=== PATIENT | female | born 1990 | race Caucasian/White ===

== ENCOUNTER 2020-07-24 11:25 | Outpatient (REF) | payer MEDICAID, SELFPAY ==
[2020-07-24 21:12] LABS: Hemoglobin A1C 5.5 % (<5.7)
[2020-07-24 21:29] LABS: Calculated LDL 84 mg/dL (<100); Cholesterol 145 mg/dL (<200); HDL Cholesterol 52 mg/dL (40-60); TSH (W/Ref FT4) 1.33 uIU/mL (0.36-3.74); Triglyceride 49 mg/dL (<150)
== END 2020-07-24 11:45 ==
LOC: NCHCN 11:25
PROVIDERS: PCP Family Medicine; Visit Provider Registered Nurse
DX: E66.9 Obesity, unspecified (principal); Z83.3 Family history of diabetes mellitus; Z13.1 Encounter for screening for diabetes mellitus; Z13.220 Encounter for screening for lipoid disorders
CPT/HCPCS: 80061; 83036; 84443

== ENCOUNTER 2020-10-30 15:44 | Outpatient (REF) | payer MEDICAID, SELFPAY ==
[2020-11-02 14:46] LABS: COVID-19 RT-PCR Result NEGATIVE (Negative)
== END 2020-10-30 16:04 ==
LOC: NCHCN 15:44
PROVIDERS: PCP Family Medicine; Visit Provider Family Medicine
DX: Z11.59 Encounter for screening for other viral diseases (principal)
CPT/HCPCS: U0003

== ENCOUNTER 2021-07-23 15:34 | Outpatient (REF) | payer MEDICAID, SELFPAY ==
--- NOTE | 2021-07-23 13:55 | PAPFT_PTH ---
PATIENT: Liz Price LOC: [facility]#:[id number] AGE/SX: 30/F ROOM: RE07/23/[address]: Argelia Alvarado : 1990 BED: DIS: 07/23/2021 SPEC #: [id number] RECD: 07/26/21 12:48 STATUS: TARAN REQ #: [id number] JESSICA: 07/23/21 13:[address]: Argelia Alvarado DEPT: [facility] Cytology RECD BY: Gricel Wolff ENTERED: 07/26/21 12:48 SP TYPE: PAPFT OTHR DR: Evi Potts Tissues: 1 - CX/ENDOCX FOR PAP SMEARS Procedures: PAP THIN PREP/[facility] Screening HPV DNA PROBE Comments: [id number]
== END 2021-07-23 15:35 | disposition home or self-care (01) ==
LOC: NCHCN 15:34
PROVIDERS: PCP Family Medicine; Visit Provider Registered Nurse
DX: Z12.4 Encounter for screening for malignant neoplasm of cervix (principal); Z11.51 Encounter for screening for human papillomavirus (HPV)
CPT/HCPCS: 88142; 87624

== ENCOUNTER 2022-06-23 14:57 | Outpatient (REF) | payer MEDICAID, SELFPAY ==
[2022-06-23 20:38] LABS: ALT 21 U/L (14-59); AST 17 U/L (15-37); Albumin 3.9 g/dL (3.4-5.0); Alkaline Phosphatase 41 U/L (46-116); Anion Gap 5.8 mmol/L (3-11); BUN 10 mg/dL (7-18); Bilirubin, Total 0.2 mg/dL (0.2-1.0); CO2 28.2 mmol/L (21.0-32.0); CREATININE 0.8 mg/dL (0.55-1.02); Calcium 8.9 mg/dL (8.5-10.1); Chloride 105 mmol/L (98-107); Glucose 97 mg/dL (74-106); Magnesium 1.9 mg/dL (1.8-2.4); Potassium 4.6 mmol/L (3.5-5.1); Sodium 139 mmol/L (136-145); Total Protein 7.3 g/dL (6.4-8.2)
== END 2022-06-23 14:58 | disposition home or self-care (01) ==
LOC: NCHCN 14:57
PROVIDERS: PCP Family Medicine; Visit Provider Nurse Practitioner Family
DX: R25.2 Cramp and spasm (principal)
CPT/HCPCS: 80053; 83735

== ENCOUNTER 2023-03-21 13:37 | Outpatient (REF) | payer MEDICAID, SELFPAY ==
[2023-03-21 14:45] LABS: ESR 3 mm/hr (0-20)
[2023-03-21 15:07] LABS: Hemoglobin A1C 5.5 % (<5.7)
[2023-03-21 15:11] LABS: Anion Gap 7.7 mmol/L (3-11); BUN 13 mg/dL (7-18); C-Reactive Protein 0.07 mg/dL (0.0-0.3); CO2 25.3 mmol/L (21.0-32.0); CREATININE 0.9 mg/dL (0.55-1.02); Calcium 9.2 mg/dL (8.5-10.1); Chloride 105 mmol/L (98-107); Estimated GFR 86.03 (mL/min/1.73m2); Glucose 89 mg/dL (74-106); Potassium 4.4 mmol/L (3.5-5.1); Sodium 138 mmol/L (136-145)
== END 2023-03-21 13:38 | disposition home or self-care (01) ==
LOC: NCHCN 13:37
PROVIDERS: PCP Family Medicine; Visit Provider Family Medicine
DX: M25.561 Pain in right knee (principal); M25.562 Pain in left knee; R60.0 Localized edema; Z13.1 Encounter for screening for diabetes mellitus
CPT/HCPCS: 80048; 85652; 83036; 86140

== ENCOUNTER 2024-01-02 11:25 | Outpatient (REF) | payer BC, SELFPAY | END 2024-01-02 11:26 | disposition home or self-care (01) | LOC: NCHCN 11:25 | PROVIDERS: PCP Family Medicine; Visit Provider Physician Assistant | DX: R35.0 Frequency of micturition (principal) | CPT/HCPCS: 87086 ==

== ENCOUNTER 2024-03-25 05:54 | Outpatient (CLI) | payer BC, SELFPAY ==
--- NOTE | 2024-03-29 12:36 | TELEFU_ITS ---
Date of service: 03/25/24 Time of Service: 13:00 Nutrition Note NOTE: Liz referred for weight mgt appt. She admits to emotional eating often. She does eat 3 meals per day but can sometimes turn into grazing. She suffers from back pain and this contributes to her weight mgt struggles and her depression as her poor sleep she accounts in part to her back pain as well. She works 10pm-6am as nurse aid and sleeps after she gets home from about 9-2pm. Knee issue and back pain reported as barriers to activity. Reviewed recommendation for 1800kcals and 180g carbs/12 carb servings per day and reviewed choices that are better/higher in fiber/lower in glycemic value. Encouraged lots of water (2L per day) and working with a repeatable menu that she start off with and branch out with variety and we reviewed some set-ups for menus.. Tried to troubleshoot exercise and suggested PT bands for upper body stuff or isometric exercises with upper body to help support kcal burn and strength increases. Liz will work at menu planning and trying to avoid grazing/eating out emot ion and keep her added sugar intake <30g per day. Time Spent in Nutritional Counseling and Treatment: 45min
== END 2024-03-25 05:55 | disposition home or self-care (01) ==
LOC: DS 05:54
PROVIDERS: PCP Family Medicine; Visit Provider Dietitian, Registered
DX: E66.8 Other obesity (principal); Z71.3 Dietary counseling and surveillance
CPT/HCPCS: 00123; 97802

== ENCOUNTER 2024-10-11 15:45 | Outpatient (REF) | payer BC, SELFPAY ==
--- NOTE | 2024-10-11 13:00 | PAPFT_PTH ---
PATIENT: Liz Price LOC: [facility]#:[id number] AGE/SX: 33/F ROOM: RE10/11/[address]: Diana Reyes : 1990 BED: DIS: 10/11/2024 SPEC #: [id number] RECD: 10/14/24 13:09 STATUS: TARAN REOscar #: [id number] JESSICA: 10/11/24 13:[address]: Diana Reyes DEPT: [facility] Cytology RECD BY: Gricel Wolff ENTERED: 10/14/24 13:09 SP TYPE: PAPFT OTHR DR: Evi Potts Tissues: 1 - CX/ENDOCX FOR PAP SMEARS Procedures: PAP THIN PREP/[facility] Screening HPV DNA PROBE Comments: [id number] (HPV 16 & 18/45)
== END 2024-10-11 15:46 | disposition home or self-care (01) ==
LOC: NCHCN 15:45
PROVIDERS: PCP Family Medicine; Visit Provider Internal Medicine
DX: Z12.4 Encounter for screening for malignant neoplasm of cervix (principal); R39.9 Unspecified symptoms and signs involving the genitourinary system; R82.89 Other abnormal findings on cytological and histological examination of urine
CPT/HCPCS: 88142; 87086; 87624

== ENCOUNTER 2025-01-13 17:45 | Outpatient (REF) | payer BC, SELFPAY ==
[2025-01-13 21:08] LABS: Abs Immature Grans 0.01 10^3/uL (0.0-0.06); Absolute Basophil Count 0.03 10^3/uL (0.0-0.2); Absolute Eosinophil Count 0.09 10^3/uL (0.0-0.7); Absolute Lymphocyte Count 2.52 10^3/uL (1.2-3.4); Absolute Monocyte Count 0.62 10^3/uL (0.1-0.8); Absolute Neutrophil Count 3.46 10^3/uL (1.2-6.7); Basophils % 0.4 %; Eosinophils % 1.3 %; HCT 37.1 % (36.0-46.0); HGB 12.1 g/dL (11.2-15.7); Immature Grans % 0.1 %; Lymphocytes % 37.4 %; MCH 27.5 pg (27.0-33.0); MCHC 32.6 % (32.0-36.0); MCV 84 fL (80-95); MPV 11.5 fL (8.0-11.0); Monocytes % 9.2 %; Neutrophils % 51.6 %; Platelet Count 209 10^3/uL (130-400); RDW 12.9 % (11.7-14.6); RDW-SD 39.4 fL; WBC 6.73 10^3/uL (4.4-10.8)
[2025-01-13 21:25] LABS: Hemoglobin A1C 5.4 % (<5.7); Iron 43 ug/dL (50-170); Total Iron Binding Capacity 376 ug/dL (250-450)
[2025-01-13 21:48] LABS: ALT 40 U/L (14-59); AST 22 U/L (15-37); Albumin 3.7 g/dL (3.4-5.0); Alkaline Phosphatase 46 U/L (46-116); Anion Gap 7.7 mmol/L (3-11); BUN 12 mg/dL (7-18); Bilirubin, Total 0.19 mg/dL (0.2-1.0); CO2 27.3 mmol/L (21.0-32.0); Calcium 8.8 mg/dL (8.5-10.1); Chloride 107 mmol/L (98-107); Estimated GFR 74.88 (mL/min/1.73m2); Ferritin 21 ng/mL (8-252); Glucose 99 mg/dL (74-106); Potassium 4.5 mmol/L (3.5-5.1); Sodium 142 mmol/L (136-145); TSH 1.23 uIU/mL (0.36-3.74); Total Protein 6.9 g/dL (6.4-8.2)
[2025-01-13 22:05] LABS: FREE T4 1.17 ng/dL (0.76-1.46)
== END 2025-01-13 17:46 | disposition home or self-care (01) ==
LOC: NCHCN 17:45
PROVIDERS: PCP Family Medicine; Visit Provider Family Medicine
DX: R53.83 Other fatigue (principal); Z13.1 Encounter for screening for diabetes mellitus
CPT/HCPCS: 80053; 82728; 83036; 83540; 83550; 84439; 84443; 85025

== ENCOUNTER 2025-03-28 16:00 | Outpatient (REF) | payer BC, SELFPAY ==
[2025-03-28 21:00] LABS: HCT 41.3 % (36.0-46.0); HGB 13.4 g/dL (11.2-15.7); MCH 27.5 pg (27.0-33.0); MCHC 32.4 % (32.0-36.0); MCV 85 fL (80-95); MPV 11.7 fL (8.0-11.0); Platelet Count 221 10^3/uL (130-400); RBC 4.87 10^6/uL (3.93-5.22); RDW 12.7 % (11.7-14.6); RDW-SD 39.1 fL; WBC 9.88 10^3/uL (4.4-10.8)
[2025-03-28 21:23] LABS: Ferritin 25 ng/mL (8-252)
[2025-03-28 21:33] LABS: Iron 95 ug/dL (50-170)
== END 2025-03-28 16:01 | disposition home or self-care (01) ==
LOC: NCHCN 16:00
PROVIDERS: PCP Family Medicine; Visit Provider Internal Medicine
DX: R06.02 Shortness of breath (principal)
CPT/HCPCS: 85027; 82728; 83540

== ENCOUNTER 2025-05-05 02:43 | Outpatient (CLI) | payer BC, SELFPAY ==
--- NOTE | 2025-06-01 09:55 | W.PFT ---
Date of service: 05/05/25 Time of Service: 15:34 Pulmonary Function Test Result Indications: Dyspnea on exertion Interpretation Spirometry: There is no airflow limitation. Lung Volumes: Normal lung volumes Diffusion Capacity: Normal diffusion Airway Pressure: Normal airways resistance Impression Normal pulmonary function testing Clinical Correlation therefore is recommended.
== END 2025-05-05 02:44 | disposition home or self-care (01) ==
LOC: RT 02:43
PROVIDERS: PCP Family Medicine; Visit Provider Student in an Organized Health Care Education/Training Program
DX: R06.02 Shortness of breath (principal); R06.09 Other forms of dyspnea
CPT/HCPCS: 94726; 94729; 94010